=== PATIENT | female | born 1960 | race Caucasian/White ===

== ENCOUNTER 2021-10-25 16:03 | Emergency (ER) | payer BC ==
[2021-10-25 16:21] VITALS: BP 144/75; PULSE 93
[2021-10-25] MEDS ORDERED: Sodium Chloride 0.9% 10 ML Syringe FLUSH PRN (16:29)
[2021-10-25] MEDS ORDERED: ceFAZolin 1 GM Vial IVPUSH ONE (16:33)
--- NOTE | 2021-10-25 17:13 | EDM.PDOC ---
ED HPI GENERAL MEDICAL PROBLEM - General Chief Complaint: Upper Extremity Injury/Pain Stated Complaint: Finger infection Time Seen by Provider: 10/25/21 16:20 Source of Information: Reports: Patient, RN History Limitations: Reports: No Limitations - History of Present Illness INITIAL COMMENTS - FREE TEXT/NARRATIVE: pt presents to the emergency department today from home. she was seen at her PCPs office today for inflammation in Onset: Today Onset Date: 10/25/21 left middle finger Pain Score (Numeric/FACES): 2 - Related Data Allergies Allergy/AdvReac Type Severity Reaction Status Date / Time clarithromycin [From Biaxin] Allergy Cough Verified 10/25/21 16:33 naproxen sodium Allergy Cannot Verified 10/25/21 16:33 [From Anaprox] Remember bubble gum Allergy cough, Uncoded 10/25/21 16:33 trouble breathing mint Allergy Cough,trouble Uncoded 10/25/21 16:33 breathing rootbeer Allergy Cough, Uncoded 10/25/21 16:33 trouble breathing Home Meds: Home Meds Albuterol [Ventolin HFA] 2 puff INH Q4HR PRN 10/06/15 [History] Cholecalciferol (Vitamin D3) [Vitamin D3] 3,000 unit PO DAILY@1200 10/06/15 [History] lisinopriL [Prinivil] 2.5 mg PO DAILY@1200 10/06/15 [History] Albuterol/Ipratropium [DuoNeb 3.0-0.5 MG/3 ML] 3 ml INH Q4HR PRN 10/25/21 [History] Mometasone/Formoterol [Dulera 200 MCG/5 MCG] 1 puff INH DAILY 10/25/21 [History] cephALEXin [Cephalexin] 500 mg PO TID 10/25/21 [History] Past Medical History Dermatologic History: Reports: Other (See Below) (dry cracked skin on fingers) - Past Surgical History Other HEENT Surgeries/Procedures: Sinus surgery in 1986 Social & Family History - Family History Family Medical History: No Pertinent Family History - Tobacco Use Tobacco Use Status *Q: Never Tobacco User - Caffeine Use Caffeine Use: Reports: Coffee - Alcohol Use Alcohol Use History: Yes Alcohol Use Frequency: Rarely - Recreational Drug Use Recreational Drug Use: No Drug Use in Last 12 Months: No - Sexual History Sexual History: Reports: Opposite Sex Partner - Living Situation & Occupation Living situation: Reports: Occupation: Employed Review of Systems - Review of Systems Review Of Systems: See Below Constitutional: Reports: No Symptoms Eyes: Reports: No Symptoms Ears: Reports: No Symptoms Nose: Reports: No Symptoms Mouth/Throat: Reports: No Symptoms Respiratory: Reports: No Symptoms Cardiovascular: Reports: No Symptoms GI/Abdominal: Reports: No Symptoms Genitourinary: Reports: No Symptoms Musculoskeletal: Reports: No Symptoms Skin: Reports: Change in Color (left middle finger erythematous to MCP joint with notable warmth, inflammation and tenderness.small scattered open cracks bilaterally. ) Neurological: Reports: No Symptoms Psychiatric: Reports: No Symptoms ED EXAM, GENERAL - Physical Exam Exam: See Below Exam Limited By: No Limitations General Appearance: Alert, WD/WN, No Apparent Distress Ears: Normal External Exam Nose: Normal Inspection Throat/Mouth: Normal Inspection Head: Atraumatic, Normocephalic Neck: Normal Inspection Respiratory/Chest: No Respiratory Distress, Normal Breath Sounds, No Accessory Muscle Use Cardiovascular: Normal Peripheral Pulses, Regular Rate, Rhythm, No Edema, No Murmur (Female) Exam: Deferred Rectal (Female) Exam: Deferred Back Exam: Normal Inspection, Full Range of Motion Extremities: Normal Inspection, Normal Range of Motion, Joint Swelling, In creased Warmth, Redness, Other (left middle finger erythematous to MCP joint with notable warmth, inflammation and tenderness.small scattered open cracks bilaterally. ) Neurological: Alert, Oriented Psychiatric: Normal Affect, Normal Mood Skin Exam: Other (see above) Course - Vital Signs Last Recorded V/S: Last Vital Signs Temp 97 F 10/25/21 16:20 Pulse 93 10/25/21 16:20 Resp 16 10/25/21 16:20 BP 144/75 H 10/25/21 16:20 Pulse Ox 97 10/25/21 16:20 - Orders/Labs/Meds Orders: Active Orders 24 hr Category Date Time Status Peripheral IV Care [RC] . DIRECTED Care 10/25/21 16:33 Active Vital Signs [RC] We@0800 Care 10/25/21 16:29 Active Nothing per Oral Now Diet [DIET] Diet 10/25/21 Breakfast Active CBC WITH AUTO DIFF [HEME] Stat Lab 10/25/21 16:52 Results LACTIC ACID [CHEM] Stat Lab 10/25/21 16:52 Received SEDIMENTATION RATE AUTO [HEME] Stat Lab 10/25/21 16:52 Results Sodium Chloride 0.9% [Saline Flush] Med 10/25/21 16:29 Active 10 ml FLUSH ASDIRECTED PRN Peripheral IV Insertion Adult [OM.PC] Stat Oth 10/25/21 16:29 Ordered Medication Orders Sodium Chloride (Sodium Chloride 0.9% 10 Ml Syringe) 10 ml FLUSH ASDIRECTED PRN PRN Reason: Keep Vein Open Labs: Laboratory Tests 10/25/21 10/25/21 Range/Units 16:52 16:52 WBC 16.2 H (4.0-10.2) K/uL RBC 4.99 (3.77-5.09) M/uL Hgb 16.0 H (11.7-15.5) g/dL Hct 47.7 H (34.0-46.0) % MCV 95.6 (84.0-98.0) fL MCH 32.1 (28.2-33.3) pg MCHC 33.5 (31.7-36.0) g/dL RDW 13.9 (11.2-14.1) % Plt Count 309 (150-350) K/uL Neut % (Auto) 87.1 H (45.0-80.0) % Lymph % (Auto) 5.4 L (10.0-50.0) % [place] % (Auto) 6.5 (2.0-14.0) % Eos % (Auto) 0.8 (0.0-5.0) % Baso % (Auto) 0.2 (0.0-2.0) % Neut # (Auto) 14.11 H (1.40-7.00) K/uL Lymph # (Auto) 0.88 (0.50-3.50) K/uL [place] # (Auto) 1.05 H (0.00-1.00) K/uL Eos # (Auto) 0.13 (0.00-0.50) K/uL Baso # (Auto) 0.03 (0.00-0.20) K/uL Sodium 139 (136-145) mmol/L Potassium 4.0 (3.5-5.1) mmol/L Chloride 100 (98-107) mmol/L Carbon Dioxide 26.9 (21.0-32.0) mmol/L Anion Gap 12.1 (7-15) meq/L BUN 12 (7-18) mg/dL Creatinine 0.65 (0.51-1.17) mg/dL Est Cr Clr Drug Dosing 66.11 mL/min Estimated GFR (MDRD) > 60 mL/min Glucose 90 (70-99) mg/dL Calcium 9.3 (8.5-10.1) mg/dL Total Bilirubin 0.5 (0.2-1.0) mg/dL AST 27 (15-37) U/L ALT 39 (12-78) U/L Alkaline Phosphatase 113 (46-116) IU/L Total Protein 8.0 (6.4-8.2) g/dL Albumin 4.0 (3.4-5.0) g/dL Meds: Medications Generic Name Dose Route Start Last Admin Trade Name Freq PRN Reason Stop Dose Admin Sodium Chloride 10 ml 10/25/21 16:29 Sodium Chloride 0.9% 10 Ml Syringe FLUSH ASDIRECTED PRN Keep Vein Open Discontinued Medications Generic Name Dose Route Start Last Admin Trade Name Freq PRN Reason Stop Dose Admin Cefazolin Sodium 1 gm 10/25/21 16:33 10/25/21 16:59 Cefazolin 1 Gm Vial IVPUSH 10/25/21 16:34 1 gm ONETIME ONE Administration - Re-Assessments/Exams Free Text/Narrative Re-Assessment/Exam: 10/25/21 17:37 Labs reveal elevated WBC. single dose of cefazolin push 1g ordered. PO keflex has not had time to work yet. continue as previously prescribed. will discharge home. Departure - Departure Time of Disposition: 17:40 Disposition: Home, Self-Care 01 Condition: Good Clinical Impression: Cellulitis of finger of left hand - Discharge Information *PRESCRIPTION DRUG MONITORING PROGRAM REVIEWED*: Not Applicable *COPY OF PRESCRIPTION DRUG MONITORING REPORT IN PATIENT ASAD: Not Applicable Instructions: Cellulitis, Adult, [id number] Referrals: Leighann Garcia NP [Primary Care Provider] - Forms: ED Department Discharge Additional Instructions: - elevate - Acetaminophen 650mg every 6 hours for pain control or temp >100.4 - cefazolin 1g IV push today - continue keflex as prescribed by PCP - pay see worsening symptoms for the first 48 hours, then slowed progression until 72 hours before noting beginning resolution after 72 hours. Sepsis Event Note (ED) - Evaluation Sepsis Screening Result: No Definite Risk - Focused Exam Vital Signs: Vital Signs Temp Pulse Resp BP Pulse Ox 10/25/21 16:20 97 F 93 16 144/75 H 97 - Problem List Review Problem List Initiated/Reviewed/Updated: Yes - My Orders Last 24 Hours: My Active Orders 10/25/21 Breakfast Nothing per Oral Now Diet [DIET] 10/25/21 16:29 Vital Signs [RC] We@0800 Sodium Chloride 0.9% [Saline Flush] 10 ml FLUSH ASDIRECTED PRN Peripheral IV Insertion Adult [OM.PC] Stat 10/25/21 16:33 Peripheral IV Care [RC] . DIRECTED 10/25/21 16:52 CBC WITH AUTO DIFF [HEME] Stat LACTIC ACID [CHEM] Stat SEDIMENTATION RATE AUTO [HEME] Stat - Assessment/Plan Last 24 Hours: My Active Orders 10/25/21 Breakfast Nothing per Oral Now Diet [DIET] 10/25/21 16:29 Vital Signs [RC] We@0800 Sodium Chloride 0.9% [Saline Flush] 10 ml FLUSH ASDIRECTED PRN Peripheral IV Insertion Adult [OM.PC] Stat 10/25/21 16:33 Peripheral IV Care [RC] . DIRECTED 10/25/21 16:52 CBC WITH AUTO DIFF [HEME] Stat LACTIC ACID [CHEM] Stat SEDIMENTATION RATE AUTO [HEME] Stat Assessment:: left middle finger cellulitis: - elevated WBC. localized warmth, inflammation and tenderness - prescribed keflex by PCP with increased redness noted but still <6 hours of treatment Plan: - elevate - Acetaminophen 650mg every 6 hours for pain control or temp >100.4 - cefazolin 1g IV push today - continue keflex as prescribed by PCP - pay see worsening symptoms for the first 48 hours, then slowed progression until 72 hours before noting beginning resolution after 72 hours.
[2021-10-25 17:18] LABS: ANION GAP 12.1 meq/L (7-15); CHLORIDE,CL 100 mmol/L (98-107); SODIUM,NA 139 mmol/L (136-145)
== END 2021-10-25 17:59 | disposition home or self-care (01) ==
LOC: LL.ED 16:03
DX: L03.012 Cellulitis of left finger (principal); Z88.1 Allergy status to other antibiotic agents; Z88.5 Allergy status to narcotic agent; Z91.048 Other nonmedicinal substance allergy status; Z79.899 Other long term (current) drug therapy
CPT/HCPCS: 36415; 80053; 83605; 85025; 85652; 96374; 99283-25; J0690

== ENCOUNTER 2025-04-01 10:38 | Day surgery (SDC) | payer BC ==
[~2025-04-01 10:38] MED LIST: Midazolam 1 MG/ML 2 ML SDV ONE; Propofol 200 MG/20 ML SDV ONE; Sodium Chloride 0.9% 10 ML Syringe FLUSH PRN
[2025-04-01] MEDS: Lactated Ringers 1,000 ML IV SCH (11:30)
[2025-04-01] MEDS: Albuterol/Ipratropium 3.0-0.5 MG/3 ML Neb Soln NEB ONE (11:30)
[2025-04-01 13:25] VITALS: BP 113/70; PULSE 86
== END 2025-04-01 13:54 | disposition home or self-care (01) ==
LOC: LL.SDS 10:38
PROVIDERS: ATTEND Surgery
DX: Z12.11 Encounter for screening for malignant neoplasm of colon (principal); D12.3 Benign neoplasm of transverse colon; K57.30 Diverticulosis of large intestine without perforation or abscess without bleeding; J44.89 Other specified chronic obstructive pulmonary disease; I10 Essential (primary) hypertension; E55.9 Vitamin D deficiency, unspecified; Z79.899 Other long term (current) drug therapy; Z88.8 Allergy status to other drugs, medicaments and biological substances
CPT/HCPCS: 00811; A9270-GY; J2250; J2704; J7120

== ENCOUNTER 2025-10-17 18:05 | Emergency (ER) | payer BC ==
[2025-10-17] MEDS ORDERED: Sodium Chloride 0.9% 10 ML Syringe FLUSH PRN (18:47)
[2025-10-17 18:51] LABS: BASOPHILS ABSOLUTE AUTO 0.04 K/uL (0.00-0.20); BASOPHILS PERCENT AUTO 0.5 % (0.0-2.0); EOSINOPHILS ABSOLUTE AUTO 0.17 K/uL (0.00-0.50); EOSINOPHILS PERCENT AUTO 2.0 % (0.0-5.0); IMMATURE GRAN ABSOLUTE AUTO 0.01 10^3/uL (0.00-0.04); IMMATURE GRAN PERCENT AUTO 0.1 % (0.0-0.4); LYMPHOCYTES ABSOLUTE AUTO 1.22 K/uL (0.50-3.50); LYMPHOCYTES PERCENT AUTO 14.2 % (10.0-50.0); MONOCYTES ABSOLUTE AUTO 0.67 K/uL (0.00-1.00); MONOCYTES PERCENT AUTO 7.8 % (2.0-14.0); NEUTROPHILS ABSOLUTE AUTO 6.51 K/uL (1.40-7.00); NEUTROPHILS PERCENT AUTO 75.4 % (45.0-80.0); PLATELET COUNT,PLT 354 K/uL (150-350); RED BLOOD CELL COUNT 4.80 M/uL (3.77-5.09); RED CELL DISTRIBUTION WIDTH 13.0 % (11.2-14.1); WHITE BLOOD CELL COUNT,WBC 8.6 K/uL (4.0-10.2)
[2025-10-17 19:11] LABS: ALANINE AMINOTRANSFERASE,ALT 30.0 U/L (12-78); ASPARTATE AMNIOTRANSFERASE,AST 23.0 U/L (15-37); BILIRUBIN TOTAL 0.4 mg/dL (0.2-1.0); BLOOD UREA NITROGEN,BUN 9.0 mg/dL (7-18); CARBON DIOXIDE,CO2 28.3 mmol/L (21.0-32.0); CHLORIDE,CL 99.0 mmol/L (98-107); CREATININE 0.65 mg/dL (0.51-1.17); EST CRCL DRUG DOSING (CG) 62.8 mL/min; GLUCOSE RANDOM 92.0 mg/dL (70-99); POTASSIUM,K 3.7 mmol/L (3.5-5.1); PRO B-TYPE NATRIUR PEPT,BNPPRO 165.0 pg/mL (0-125); PROTEIN TOTAL,TP 7.2 g/dL (6.4-8.2); SODIUM,NA 137.0 mmol/L (136-145); TSH ULTRASENSITIVE 4.084 mIU/mL (0.358-3.740)
[2025-10-17 19:13] LABS: ESTIMATED GFR 98.0 mL/min (>=60)
[2025-10-17 20:35] VITALS: BP 149/86; PULSE 79
== END 2025-10-17 20:17 | disposition home or self-care (01) ==
LOC: LL.ED 18:05
DX: E86.0 Dehydration (principal); R42 Dizziness and giddiness; I10 Essential (primary) hypertension; J45.909 Unspecified asthma, uncomplicated; Z79.899 Other long term (current) drug therapy; Z88.8 Allergy status to other drugs, medicaments and biological substances; Z91.018 Allergy to other foods
CPT/HCPCS: 36415; 80053; 83735; 83880; 84443; 84484; 85025; 93005; 93010; 96360; 99284; 99284-25; A9270-GY; J7030